=== PATIENT | male | born 1990 | race Two or more races ===

== ENCOUNTER 2020-07-23 23:13 | Emergency (ER) | payer SELFPAY ==
[~2020-07-23] VITALS: Ht 170.2 cm; Wt 77.6 kg
[2020-07-24 00:43] VITALS: BP 122/78
== END 2020-07-24 00:51 ==
LOC: ER 23:17
DX: S00.03XA Contusion of scalp, initial encounter (principal); S16.1XXA Strain of muscle, fascia and tendon at neck level, initial encounter; I10 Essential (primary) hypertension; X58.XXXA Exposure to other specified factors, initial encounter; Y93.89 Activity, other specified; Y92.89 Other specified places as the place of occurrence of the external cause; Y99.8 Other external cause status
CPT/HCPCS: 70450; 72125